=== PATIENT | female | born 1945 ===

== ENCOUNTER 2022-03-04 11:38 | Emergency (ER) | payer OTHER ==
[~2022-03-04] VITALS: Ht 154.9 cm; Wt 63.5 kg
[2022-03-04] MEDS ORDERED: COZAAR50 MG PO (12:16)
[2022-03-04] MEDS ORDERED: TIROSINT75 MCG PO (12:16)
[2022-03-04] MEDS ORDERED: HYDRALAZINE HCL50 MG PO (12:16)
[2022-03-04] MEDS ORDERED: CARVEDILOL ER40 MG PO (12:17)
[2022-03-04] MEDS ORDERED: PLAVIX75 MG PO (12:17)
[2022-03-04] MEDS ORDERED: ATORVASTATIN CA10 MG PO (12:17)
[2022-03-04] MEDS ORDERED: ISOSORBIDE DINI30 MG PO (12:17)
[2022-03-04] MEDS ORDERED: PEPCID AC20 MG PO (12:18)
[2022-03-04] MEDS ORDERED: CITALOPRAM20 MG/10 M PO (12:18)
[2022-03-04] MEDS ORDERED: ARICEPT5 MG PO (12:18)
[2022-03-04] MEDS ORDERED: LASIX40 MG (12:19)
[2022-03-04] MEDS ORDERED: ALDACTONE25 MG PO (12:19)
[2022-03-04] MEDS ORDERED: XANAX0.25 MG PO (12:19)
[2022-03-04] MEDS ORDERED: TOPROL XL50 M1 PO (12:20)
[2022-03-04] MEDS ORDERED: PROTONIX40 M1 PO (12:20)
[2022-03-04] MEDS ORDERED: ECOTRIN81 MG PO (12:20)
[2022-03-04] MEDS ORDERED: VITAMIN B122500 MC1 PO (12:21)
== END 2022-03-04 16:13 | disposition home or self-care (01) ==
LOC: ER 11:38
DX: J20.9 Acute bronchitis, unspecified (principal); Z79.82 Long term (current) use of aspirin; Z88.0 Allergy status to penicillin; I10 Essential (primary) hypertension; E03.9 Hypothyroidism, unspecified; Z30.9 Encounter for contraceptive management, unspecified; F02.80 Dementia in other diseases classified elsewhere, unspecified severity, without behavioral disturbance, psychotic disturbance, mood disturbance, and anxiety; Z20.822 Contact with and (suspected) exposure to COVID-19